=== PATIENT | male | born 1980 | race Caucasian/White ===

== ENCOUNTER 2018-03-22 23:55 | Emergency (ER) | payer MEDICAID ==
[~2018-03-22] VITALS: Ht 175.3 cm; Wt 100.0 kg
[2018-03-23] MEDS ORDERED: clindamycin 150mg capsule PO ONE (00:25)
[2018-03-23] MEDS ORDERED: LIDOcaine 1% 30ml preserv. free vial IJ ONE (00:25)
[2018-03-23] MEDS ORDERED: CLIN150C8 PO (00:38)
[2018-03-23] MEDS ORDERED: ibuprofen tablet 400 MG TABLET PO ONE (00:55)
[2018-03-23] MEDS ORDERED: ketorolac trometh inj. 60 MG/2 ML VIAL IM ONE (00:55)
[2018-03-23 01:13] VITALS: BP 112/64
== END 2018-03-23 01:15 | disposition home or self-care (01) ==
LOC: ER 23:56
DX: L02.511 Cutaneous abscess of right hand (principal); Z79.2 Long term (current) use of antibiotics
CPT/HCPCS: 10060; 99283; J3490